=== PATIENT | female | born 1955 | race Caucasian/White ===

== ENCOUNTER → 2023-04-22 | Outpatient (CLI) | payer OTHER ==
[~2023-04-22] MED LIST: CATHETER FLUSH 10 ML SYR IVP PRN
--- NOTE | 2023-04-23 09:20 | Diagnostic Imaging Report ---
INDICATION: Initial staging of secondary malignant neoplasm of bone. Serum blood glucose level at time of injection is 116 mg/dL. Patient was administered 10.5 mCi F-18 FDG intravenously in the right hand and PET imaging was performed from the top of the skull to mid thighs. Noncontrast CT was also performed for attenuation correction and anatomic correlation. COMPARISON: No prior PET/CT studies are available for comparison. There appears to be symmetric activity throughout the brain. There is a large lytic lesion within the right frontal calvarium which involves both the inner and outer table. Soft tissues of the neck are unremarkable. There is a large lytic lesion and soft tissue mass involving the left aspect of the mid and lower cervical spine with SUV max of approximately 21. There also appears to be expansile hypermetabolic lesion involving the right lateral third rib with an SUV max of 7.8. There is a lytic lesion involving an upper thoracic vertebral body, approximately T5 or T6 with an SUV max of 13. There is also a hypermetabolic lytic lesion involving the left aspect of the L1 vertebral body with an SUV max of 8. No other suspicious osseous hypermetabolic foci are identified. There are hypermetabolic lymph nodes in the AP window and left hilar region. AP window node demonstrates an SUV max of 12.4. Soft tissue mass left upper lobe has an SUV max of 5.5. There is vague uptake along the lateral right margin of the L4 vertebral body. No other suspicious foci are seen. There is physiologic activity throughout the gastrointestinal and genitourinary tracts of the abdomen and pelvis. IMPRESSION: There are multiple lytic lesions involving the calvarium as well as the cervical spine, thoracic spine and lumbar spine suggestive of osseous metastatic disease. There is an expansile lesion of the right 3rd rib. Soft tissue mass in the left upper lobe is noted with hypermetabolic lymph nodes in the mediastinum and left hilum. Dictated by: Dictated on workstation # [id number]
== END ==
LOC: RAD 08:23
PROVIDERS: ATTEND Radiology Radiation Oncology
DX: C79.51 Secondary malignant neoplasm of bone (principal); R91.1 Solitary pulmonary nodule
CPT/HCPCS: 78815; 82947; A9552

== ENCOUNTER 2023-04-27 09:45 | Emergency (ER) | payer OTHER | END 2023-04-27 10:06 | disposition left against medical advice (07) | LOC: EDUNIT# 09:45 → ER 09:47 | DX: R53.1 Weakness (principal) ==

== ENCOUNTER → 2023-04-30 | Outpatient (RCR) | payer OTHER | END | disposition home or self-care (01) | LOC: ONC 04-14 14:33 | PROVIDERS: ATTEND Radiology Radiation Oncology | DX: Z51.0 Encounter for antineoplastic radiation therapy (principal); C79.51 Secondary malignant neoplasm of bone; C34.12 Malignant neoplasm of upper lobe, left bronchus or lung; F17.210 Nicotine dependence, cigarettes, uncomplicated | CPT/HCPCS: 77300; 77301; 77334; 77338; G0463; 77386; 77470; 99205 ==

== ENCOUNTER 2023-05-13 12:42 | Outpatient (RCR) | payer OTHER ==
[2023-05-26] MEDS ORDERED: CEFD300C3 PO (21:13)
== END 2023-05-31 | disposition home or self-care (01) ==
LOC: ONC 12:42
PROVIDERS: ATTEND Radiology Radiation Oncology
DX: Z51.0 Encounter for antineoplastic radiation therapy (principal); C34.90 Malignant neoplasm of unspecified part of unspecified bronchus or lung; C79.51 Secondary malignant neoplasm of bone
CPT/HCPCS: 77386; G0463; 77336

== ENCOUNTER 2023-05-26 18:21 | Emergency (ER) | payer OTHER ==
[~2023-05-26] VITALS: Ht 167.7 cm; Wt 54.4 kg
[2023-05-26] MEDS ORDERED: fentaNYL INJ 100 MCG/2 ML AMP IVP STA ×2 (18:38→20:06)
[2023-05-26] MEDS ORDERED: LACTATED RINGERS 1,000 ML IV ONE (18:45)
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
[2023-05-26 19:04] LABS: BASOPHILS # (AUTO) 0.1 10^3/uL (0.0-0.1); BASOPHILS % (AUTO) 1 % (0-10); HEMATOCRIT 41 % (35-52)
[2023-05-26 19:06] LABS: EOSINOPHILS # (AUTO) 0.2 10^3/uL (0.0-0.3); EOSINOPHILS % (AUTO) 2 % (0-10); HEMOGLOBIN 13.5 g/dL (11.5-16.0); LYMPHOCYTES # (AUTO) 2.4 10^3/uL (1.0-4.0); LYMPHOCYTES % (AUTO) 24 % (12-44); MEAN CORPUSCULAR HEMOGLOBIN 31 pg (25-34); MEAN CORPUSCULAR HGB CONC 33 g/dL (32-36); MEAN CORPUSCULAR VOLUME 93 fL (80-99); MEAN PLATELET VOLUME 9.5 fL (9.0-12.2); MONOCYTES # (AUTO) 0.6 10^3/uL (0.0-1.0); MONOCYTES % (AUTO) 6 % (0-12); NEUTROPHILS # (AUTO) 6.8 10^3/uL (1.8-7.8); NEUTROPHILS % (AUTO) 66 % (42-75); PLATELET COUNT 128 10^3/uL (130-400); WHITE BLOOD COUNT 10.2 10^3/uL (4.3-11.0)
[2023-05-26 19:14] LABS: ALBUMIN 3.5 GM/DL (3.2-4.5)
[2023-05-26 19:15] LABS: CALCIUM 9.1 MG/DL (8.5-10.1)
[2023-05-26 19:16] LABS: BILIRUBIN,URINE NEGATIVE (NEGATIVE); CLARITY,URINE CLEAR; COLOR,URINE YELLOW; GLUCOSE, URINE (UA) NEGATIVE (NEGATIVE); KETONES,URINE NEGATIVE (NEGATIVE); LEUKOCYTE ESTERASE ,URINE 2+ (NEGATIVE); NITRITE,URINE NEGATIVE (NEGATIVE); PROTEIN,URINE NEGATIVE (NEGATIVE)
[2023-05-26 19:17] LABS: TOTAL PROTEIN 5.7 GM/DL (6.4-8.2)
[2023-05-26 19:18] LABS: BILIRUBIN,TOTAL 0.2 MG/DL (0.1-1.0)
[2023-05-26 19:20] LABS: CREATININE SERUM 0.62 MG/DL (0.60-1.30)
[2023-05-26 19:23] LABS: MAGNESIUM 2.1 MG/DL (1.6-2.4)
[2023-05-26 19:31] LABS: RBC,URINE 0-2 /HPF
[2023-05-26 19:32] LABS: AMORPHOUS SEDIMENT,UR FEW AMOR URATES /LPF; BACTERIA,URINE MODERATE /HPF; SQUAMOUS EPITHELIAL CELL,UR >50 /HPF; WBC,URINE 25-50 /HPF
[2023-05-26] MEDS ORDERED: cefTRIAXone IV/IM 1,000 MG in NS (IVPB) 50 ML 50 ML IV ONE (19:45)
--- NOTE | 2023-05-26 19:55 | Diagnostic Imaging Report ---
INDICATION: Back pain radiating to both arms. History of lung carcinoma. EXAMINATION: Chest, 05/26/2023. FINDINGS: Single view chest. Postoperative changes noted in the cervical region with a chest port on the right tip in the distal CCA. Heart normal. Pulmonary vasculature unremarkable. There is a likely subpleural mass in the right upper lung. There may be a mass in the right lung apex as well. No effusion. No pneumothorax. IMPRESSION: Subpleural mass right peripheral upper lung with an adjacent airspace opacity in the apex possibly infiltrate but a mass given history of lung carcinoma likely. Dictated by: Dictated on workstation # [id number]
--- NOTE | 2023-05-26 20:14 | Diagnostic Imaging Report ---
PROCEDURE: CT thoracic and lumbar spine without contrast. TECHNIQUE: Multiple contiguous axial images were obtained through the thoracic and lumbar spine without the use of intravenous contrast. Sagittal and coronal reformations were then performed. All CT scans use one or more of the following dose optimizing techniques: automated exposure control, MA and/or KvP adjustment based on a patient size and exam type, or iterative reconstruction. INDICATION: History of lung carcinoma with known metastatic disease. Back pain after fall. EXAMINATION: CT thoracic and lumbar spine from 05/26/2023 No priors available for comparison. FINDINGS: Thoracic spine: There is a sclerotic lesion with more posterior lucency at the T5 vertebral body. Mild loss of height is noted suggesting a fracture, age indeterminate. Mild retropulsion noted. Approximately 20% loss of height is noted. 10% loss of height seen along superior endplate at T4 age indeterminate. There is mild lucency along the superior endplate at the T1 level possibly due to extension of the known cervical mass into the superior endplate at T1. Remaining vertebral bodies within the thoracic spine appear maintained. No significant subluxations. There is likely lymphadenopathy within bilateral perihilar regions. Aneurysmal dilatation of the aorta noted. Likely small hiatal hernia. Visualized lungs demonstrate coarsened interstitial markings bilaterally. There is focal atelectasis versus early infiltrate or even underlying mass in the left lung base. IMPRESSION: 1. Mild loss of height at T4 age indeterminate with a compression deformity at T5 pathologic in appearance with mild retropulsion noted, age indeterminate, otherwise incidental findings as above. CT lumbar spine: There is a destructive lesion at L1 with a pathologic compression fracture noted. Lucent sclerotic areas noted throughout the vertebral body with approximately 50% loss of height. Mild retropulsion of the posterior endplate is noted. There is a likely soft tissue component along the left lateral and anterior aspect of the vertebral body. Remaining osseous structures in the lumbar spine intact. There is diffuse osteopenia. Visualized intra-abdominal structures unremarkable for acute abnormality. IMPRESSION: 1. Pathologic compression fracture at L1 as detailed above with soft tissue component extending anteriorly and left laterally. Remaining spine demonstrates degenerative disease with no other fractures identified, however, there is marked osteopenia. Dictated by: Dictated on workstation # [id number]
--- NOTE | 2023-05-26 21:00 | Diagnostic Imaging Report ---
INDICATION: Trauma with history of secondary malignant neoplasm of the bone. EXAMINATION: CT brain without contrast and CT cervical spine, 05/26/2023. All CT scans use one or more of the following dose optimizing techniques: automated exposure control, MA and/or KvP adjustment based on patient size and exam type or iterative reconstruction. COMPARISON: Correlation made to a PET/CT 04/22/2023. FINDINGS: There is a large lytic lesion involving the right parietal calvarium which measures 3.1 x 1.0 x 3.1 cm in size. This is seen on previous PET/CT. Destructive change along the inner and outer table of the cortex noted. Some of the soft tissue component bulges inwards towards the parietal lobe without mass effect. There is no hemorrhage or infarct and otherwise no mass or mass effect with no midline shift. No hydrocephalus. Focus of encephalomalacia noted in the left cerebellum. Within the remaining calvarium vague smaller lucencies noted possibly developing lesions. No acute fracture in these regions. Paranasal sinuses unremarkable for acute disease IMPRESSION: Large lytic lesion disrupting the calvarium along the right anterior parietal region as noted on previous PET scan consistent with the known underlying carcinoma. If there is concern for intraparenchymal metastatic process, MRI with and without contrast would be more sensitive as clinically indicated. CT CERVICAL SPINE: Severe changes noted at the postoperative levels with anterior fusion noted from C5 through presumably C7. Much of the superior aspect of C7 and nearly the entire C6 vertebral body is destroyed and absent replaced by likely soft tissue mass. These findings are vaguely visualized on the previous PET/CT. Destructive change extends into the posterior elements, left worse than right, at the C4-C5 level to the C6 level. There is a lucency through the left inferior process of the facet at the C7 level suspicious for acute fracture. Vague similar lucency noted in the left lamina at C6 there is anterior angulation of the superior plate at C5 in relation to the more inferior abnormalities perhaps due to mass effect from an underlying soft tissue mass. However, no significant subluxation is appreciated. There is diffuse marked osteopenia. Along the inferior anterior C7 residual endplate, anterolisthesis is seen in relation to T1. There is a lucency posteriorly through the C7 spinous process age indeterminate but likely old correlation for point tenderness. Prevertebral soft tissues unremarkable. Fat stranding within subcutaneous soft tissues in the left aspect of the neck noted likely posttraumatic edema. The lung apices demonstrate chronic findings. IMPRESSION: Large destructive lesion in the spine as above with postoperative change as noted. There is a likely superimposed soft tissue mass which extends into the posterior elements on the left as detailed above. Next number acute appearing fractures of the left C6 and C7 lamina/pedicle region I am sorry lamina/facet regions see above description. Next number lucency through the spinous process of C7, likely chronic, correlate for point tenderness. Dictated by: Dictated on workstation # [id number]
[2023-05-26] MEDS ORDERED: CEFD300C3 PO (21:13)
[2023-05-26 21:27] VITALS: BP 142/72
== END 2023-05-26 21:27 | disposition home or self-care (01) ==
LOC: EDUNIT# 18:21 → ER 18:23
DX: M54.12 Radiculopathy, cervical region (principal); C34.90 Malignant neoplasm of unspecified part of unspecified bronchus or lung; C79.51 Secondary malignant neoplasm of bone; G95.9 Disease of spinal cord, unspecified; N39.0 Urinary tract infection, site not specified; F17.210 Nicotine dependence, cigarettes, uncomplicated; Z79.899 Other long term (current) drug therapy; Z88.1 Allergy status to other antibiotic agents
CPT/HCPCS: 36415; 70450; 71045; 72125; 72128; 72131; 80053; 81000; 83735; 85025; 85610; 85730; 87088; 93041